=== PATIENT | male | born 1960 | race Caucasian/White ===

== ENCOUNTER 2024-07-05 11:43 | Inpatient (IN) | payer OTHER ==
[~2024-07-05] VITALS: Ht 170.2 cm; Wt 65.9 kg
[2024-07-05] VITALS (13 sets, daily range): BP systolic 111–146; BP diastolic 80–92; PULSE 95–141; RESP 14–31; TEMP 37.1; O2SAT 99–100
[2024-07-05 13:39] LABS: HEMATOCRIT. 47.8 % (42.0-52.0); HEMOGLOBIN. 15.5 g/dL (14.0-18.0); MEAN CORPUSCULAR HEMOGLOBIN 29.3 pg (28.0-32.0); MEAN CORPUSCULAR HGB CONC 32.5 g/dL (31.0-37.0); MEAN CORPUSCULAR VOLUME 90.3 fL (80.0-94.0); MEAN PLATELET VOLUME 8.1 fl (7.4-10.4); PLATELET 221 x1000/uL (130-400); RED CELL DISTRIBUTION WIDTH 12.8 % (11.6-14.6); WHITE BLOOD COUNT 18.7 x1000/uL (4.5-11.0)
[2024-07-05 13:50] LABS: DIFFERENTIAL COMMENT 1
[2024-07-05 14:02] LABS: CARBON DIOXIDE 23 mEq/L (21-32); CHLORIDE 102 mEq/L (98-107); POTASSIUM 4.1 mEq/L (3.5-5.1); SODIUM 136 mEq/L (136-145)
[2024-07-05 14:04] LABS: CALCIUM 10.2 mg/dL (8.7-10.4)
[2024-07-05 14:08] LABS: CREATININE 0.9 mg/dL (0.6-1.3); GLUCOSE 140 mg/dL (70-105); UREA NITROGEN BLOOD 12 mg/dL (9-23)
[2024-07-05] MEDS: LORAZEPAM 2MG/ML UD SYRINGE IV NR ×2 (14:35→16:35)
[2024-07-05] MEDS: SODIUM CHLORIDE 0.9% 1,000 ML IV ONE (14:40)
[2024-07-05] MEDS: LEVETIRACETAM 1000MG PREMIX 100 ML IV NR (14:40)
[2024-07-05 15:31] LABS: AMMONIA < 17 uMol/L (<32)
[2024-07-05] MEDS: HALOPERIDOL LACTATE 5MG/ML VIAL IM ONE ×2 (15:54→17:02)
[2024-07-05] MEDS: LORAZEPAM 2MG/ML INJ IV ONE (15:54)
[2024-07-05 15:57] LABS: PLATELET ESTIMATE NORMAL
[2024-07-05 16:07] LABS: ETHANOL BLOOD < 10 mg/dL (<10)
[2024-07-05 16:11] LABS: THYROID STIMULATING HORMONE 0.96 uIU/mL (0.55-4.78)
[2024-07-05] MEDS: DIPHENHYDRAMINE 50MG/ML VIAL IM NR (16:38)
[2024-07-05] MEDS ORDERED: PROPOFOL 10MG/ML 100ML 100 ML IV PRN (17:45)
[2024-07-05] MEDS: PROPOFOL 10MG/ML 100ML 100 ML IV ONE (17:50)
[2024-07-05] MEDS: ETOMIDATE 2MG/ML 10ML VIAL IV ONE (17:51)
[2024-07-05] MEDS: SUCCINYLCHOLINE CHLORIDE 200MG/10ML IV ONE ×2 (17:51→17:59)
[2024-07-05] MEDS: MIDAZOLAM HCL 2 MG/2 ML VIAL IV ONE (18:04)
[2024-07-05 18:07] LABS: ALANINE AMINOTRANSFERASE 25 IU/L (10-49); ALBUMIN 4.3 g/dL (3.2-4.8); ASPARTATE AMINOTRANSFERASE 52 IU/L (<34); BILIRUBIN DIRECT 0.2 mg/dL (<=3.0); BILIRUBIN TOTAL 0.9 mg/dL (0.1-1.0); PROTEIN TOTAL 7.6 g/dL (6.0-8.3)
[2024-07-05 18:22] LABS: PROTHROMBIN TIME 10.6 sec (9.6-11.0)
[2024-07-05] MEDS ORDERED: DEXTROSE 50% WATER 50ML SYRINGE IV PRN (18:30)
[2024-07-05] MEDS ORDERED: ACETAMINOPHEN 325MG TABLET PO PRN (18:30)
[2024-07-05] MEDS ORDERED: GUAIFENESIN 200MG/10ML SUGAR FREE UDC PO PRN ×2 (18:30→19:30)
[2024-07-05] MEDS ORDERED: DOCUSATE SODIUM 100MG CAPSULE PO PRN (18:30)
[2024-07-05] MEDS ORDERED: IPRATROPIUM/ALBUTEROL 0.5-3(2.5)MG/3ML NEB HHN PRN (18:30)
[2024-07-05] MEDS ORDERED: ONDANSETRON HCL 4MG/2ML INJ IV PRN (18:30)
[2024-07-05 18:33] LABS: CLARITY URINE CLEAR (CLEAR); COLOR URINE YELLOW (YELLOW); GLUCOSE URINE NEGATIVE (NEGATIVE); KETONES URINE 1+ (NEGATIVE); LEUKOCYTE ESTERASE URINE NEGATIVE (NEGATIVE); NITRITE URINE NEGATIVE (NEGATIVE); OCCULT BLOOD URINE 2+ (NEGATIVE); PROTEIN URINE 2+ (NEGATIVE); SPECIFIC GRAVITY URINE 1.015 (1.005-1.030); UROBILINOGEN URINE 0.2 E.U./dL (0.2-1.0)
[2024-07-05 18:39] LABS: TROPONIN I HIGH SENSITIVITY 99 ng/L (3.0-53)
[2024-07-05 18:51] LABS: *AMPHETAMINES SCREEN URINE NEGATIVE (NEGATIVE); *BENZODIAZEPINES SCREEN URINE NEGATIVE (NEGATIVE)
[2024-07-05 18:52] LABS: *BARBITURATES SCREEN URINE NEGATIVE (NEGATIVE); *COCAINE SCREEN URINE NEGATIVE (NEGATIVE); CANNABINOID URINE SCREEN NEGATIVE (NEGATIVE); ECSTASY MDMA SCREEN URINE NEGATIVE (NEGATIVE); METHADONE URINE SCREEN NEGATIVE (NEGATIVE); OPIATES URINE SCREEN NEGATIVE (NEGATIVE); PHENCYCLIDINE URINE SCREEN NEGATIVE (NEGATIVE)
[2024-07-05] MEDS ORDERED: CEFTRIAXONE 2GM/50ML 50 ML IV ONE (19:00)
[2024-07-05] MEDS ORDERED: VANCOMYCIN 1.5GM/250ML 250 ML IV SCH (19:00)
[2024-07-05] MEDS ORDERED: ACYCLOVIR INJ 800 MG in DEXT 5% WATER 100 ML IV ONE (19:00)
[2024-07-05 19:11] LABS: BACTERIA URINE 1+; SQUAMOUS EPITHELIAL CELL URINE RARE /lpf (RARE/1+); WBC URINE 0-2 /hpf (0-2)
[2024-07-05 19:16] LABS: BG BASE EXCESS -2.5 mmol/L (-2.0-3.0); BG CARBOXYHEMOGLOBIN 0.6 % (0.5-1.5); BG DEOXYHEMOGLOBIN 0.2 % (0.0-5.0); BG FRACTION INSPIRED OXYGEN 100; BG METHEMOGLOBIN 0.3 % (0.5-1.5); BG OXYGEN SATURATION 99.8 % (94.0-98.0); BG OXYHEMOGLOBIN 98.9 % (94.0-98.0); BG PCO2 32.9 mmHg (35.0-48.0); BG PH 7.422 (7.350-7.450); BG PO2 526.7 mmHg (83.0-108.0); BG SAMPLE SITE RIGHT RADIAL; BG TOTAL HEMOGLOBIN 15.2 g/dL (13.5-17.5); BG TOTAL RESPIRATORY RATE 15 b/min; BG VENT MODE VENT - AC
[2024-07-05] MEDS ORDERED: IPRATROPIUM/ALBUTEROL 0.5-3(2.5)MG/3ML NEB NEB PRN (19:30)
[2024-07-05] MEDS ORDERED: CEFTRIAXONE 1GM/50ML 50 ML IV NR (21:00)
[2024-07-05] MEDS: INSULIN LISPRO 100 UNITS/ML SUBCUT SCH (21:00)
[2024-07-05] MEDS: PROPOFOL 10MG/ML 100ML 100 ML IV PRN (21:02)
[2024-07-05] MEDS: BLOOD SUGAR DIAGNOSTIC STRIP TEST SCH (21:03)
[2024-07-05] MEDS: SODIUM CHLORIDE 0.9% 3ML FLUSH IVF SCH (21:53)
[2024-07-05] MEDS: ENOXAPARIN 40MG/0.4ML SYR SUBCUT SCH (21:54)
[2024-07-05] MEDS: ACYCLOVIR INJ 800 MG in DEXT 5% WATER 100 ML IV NR (21:54)
[2024-07-05] MEDS: CEFTRIAXONE 2GM/50ML 50 ML IV NR (21:54)
[2024-07-05] MEDS: VANCOMYCIN 1.5GM/250ML 250 ML IV NR (21:54)
[2024-07-05] MEDS: LEVETIRACETAM 1000MG PREMIX 100 ML IV SCH (21:55)
[2024-07-05] MEDS: PANTOPRAZOLE SODIUM 40 MG/VIAL IV SCH (21:55)
[2024-07-05] MEDS: METHYLPREDNISOLONE SOD SUCC 40MG/ML (ACT-O-VIAL) IV SCH (23:44)
[2024-07-06] VITALS (72 sets, daily range): BP systolic 89–150; BP diastolic 69–106; PULSE 62–117; RESP 14–20; TEMP 36.3–36.7; O2SAT 99–100
[2024-07-06 00:24] LABS: CREATINE KINASE 3869 IU/L (46-171)
[2024-07-06 00:28] LABS: TROPONIN I HIGH SENSITIVITY 108 ng/L (3.0-53)
[2024-07-06 00:29] LABS: HEPATITIS B SURFACE ANTIGEN NEGATIVE (Negative)
[2024-07-06 00:50] LABS: HEPATITIS A AB IGM NEGATIVE (Negative); HEPATITIS B CORE AB IGM NEGATIVE (Negative)
[2024-07-06 00:51] LABS: HEPATITIS C AB NON REACTIVE (Neg) (Negative)
[2024-07-06] MEDS ORDERED: LEVE500T19 PO (02:29)
[2024-07-06] MEDS ORDERED: ATOR40TA70 PO (02:29)
[2024-07-06 06:48] LABS: CHLORIDE 102 mEq/L (98-107); POTASSIUM 3.5 mEq/L (3.5-5.1); SODIUM 135 mEq/L (136-145)
[2024-07-06 06:49] LABS: CALCIUM 9.5 mg/dL (8.7-10.4); CARBON DIOXIDE 23 mEq/L (21-32)
[2024-07-06 06:53] LABS: HEMATOCRIT. 43.7 % (42.0-52.0); HEMOGLOBIN. 14.7 g/dL (14.0-18.0); MEAN CORPUSCULAR HEMOGLOBIN 29.9 pg (28.0-32.0); MEAN CORPUSCULAR HGB CONC 33.6 g/dL (31.0-37.0); MEAN CORPUSCULAR VOLUME 89.1 fL (80.0-94.0); PLATELET 169 x1000/uL (130-400); RED BLOOD CELL COUNT 4.91 mill/uL (4.7-6.1); RED CELL DISTRIBUTION WIDTH 12.8 % (11.6-14.6); WHITE BLOOD COUNT 10.2 x1000/uL (4.5-11.0)
[2024-07-06 06:54] LABS: GLUCOSE 144 mg/dL (70-105); UREA NITROGEN BLOOD 12 mg/dL (9-23)
[2024-07-06 07:05] LABS: CREATINE KINASE 3056 IU/L (46-171)
[2024-07-06 07:21] LABS: DIFFERENTIAL COMMENT 1
[2024-07-06] MEDS: SODIUM CHLORIDE 0.9% 1,000 ML IV SCH (08:18)
[2024-07-06 08:23] LABS: BG BASE EXCESS -1.3 mmol/L (-2.0-3.0); BG CARBOXYHEMOGLOBIN 0.8 % (0.5-1.5); BG DEOXYHEMOGLOBIN 1.8 % (0.0-5.0); BG FRACTION INSPIRED OXYGEN 30; BG HCO3 ACT 21.7 mmol/L (21.0-28.0); BG METHEMOGLOBIN 0.3 % (0.5-1.5); BG OXYGEN SATURATION 98.2 % (94.0-98.0); BG OXYHEMOGLOBIN 97.1 % (94.0-98.0); BG PCO2 32.2 mmHg (35.0-48.0); BG PH 7.447 (7.350-7.450); BG PO2 102.7 mmHg (83.0-108.0); BG SAMPLE SITE RIGHT RADIAL; BG VENT MODE VENT - AC
[2024-07-06 09:54] LABS: TROPONIN I HIGH SENSITIVITY 56 ng/L (3.0-53)
[2024-07-06 12:38] LABS: TROPONIN I HIGH SENSITIVITY 26 ng/L (3.0-53)
[2024-07-06 13:54] LABS: PLATELET ESTIMATE NORMAL
[2024-07-06] MEDS ORDERED: GADOTERATE MEGLUMINE 5 MMOL/10 ML VIAL IV ONE (18:01)
[2024-07-06] MEDS: CEFTRIAXONE 1GM/50ML 50 ML IV SCH (22:08)
[2024-07-06] MEDS: DEXMEDETOMIDINE 400 MCG/100 ML 100 ML IV PRN (22:46)
[2024-07-06] MEDS: PROPOFOL 10MG/ML 100ML 100 ML IV PRN (22:47)
[2024-07-07] VITALS (88 sets, daily range): BP systolic 109–213; BP diastolic 77–128; PULSE 45–144; RESP 15–34; TEMP 36.6–37.6; O2SAT 94–100
[2024-07-07 05:54] LABS: HEMATOCRIT 44.5 % (42.0-52.0); HEMOGLOBIN 14.7 g/dL (14.0-18.0); MEAN CORPUSCULAR HEMOGLOBIN 29.9 pg (28.0-32.0); MEAN CORPUSCULAR VOLUME 90.4 fL (80.0-94.0); PLATELET 157 x1000/uL (130-400); RED BLOOD CELL COUNT 4.92 mill/uL (4.7-6.1); RED CELL DISTRIBUTION WIDTH 13.1 % (11.6-14.6); WHITE BLOOD COUNT 15.7 x1000/uL (4.5-11.0)
[2024-07-07 05:59] LABS: CHLORIDE 113 mEq/L (98-107); POTASSIUM 3.7 mEq/L (3.5-5.1); SODIUM 145 mEq/L (136-145)
[2024-07-07 06:00] LABS: CALCIUM 9.2 mg/dL (8.7-10.4); CARBON DIOXIDE 22 mEq/L (21-32)
[2024-07-07 06:05] LABS: CREATININE 0.8 mg/dL (0.6-1.3); GLUCOSE 121 mg/dL (70-105); TRIGLYCERIDE 183 mg/dL (0-150); UREA NITROGEN BLOOD 14 mg/dL (9-23)
[2024-07-07 06:07] LABS: PHOSPHORUS 3.2 mg/dL (2.5-4.9)
[2024-07-07 08:57] LABS: BG BASE EXCESS -3.2 mmol/L (-2.0-3.0); BG CARBOXYHEMOGLOBIN 1.1 % (0.5-1.5); BG DEOXYHEMOGLOBIN 1.5 % (0.0-5.0); BG FRACTION INSPIRED OXYGEN 30; BG HCO3 ACT 17.7 mmol/L (21.0-28.0); BG METHEMOGLOBIN 0.3 % (0.5-1.5); BG OXYGEN SATURATION 98.5 % (94.0-98.0); BG OXYHEMOGLOBIN 97.1 % (94.0-98.0); BG PCO2 22.9 mmHg (35.0-48.0); BG PH 7.506 (7.350-7.450); BG SAMPLE SITE RIGHT RADIAL; BG TOTAL HEMOGLOBIN 14.8 g/dL (13.5-17.5); BG VENT MODE VENT - AC
[2024-07-07] MEDS: LORAZEPAM 0.5MG TABLET PO PRN (13:42)
[2024-07-07] MEDS: LORAZEPAM 2MG/ML UD SYRINGE IV PRN (15:48)
[2024-07-07] MEDS: ACETAMINOPHEN 325MG TABLET PO PRN (20:58)
[2024-07-07] MEDS: CLONIDINE 0.1MG TABLET PO SCH (21:46)
[2024-07-07] MEDS: QUETIAPINE FUMARATE 25MG TABLET PO SCH (21:46)
[2024-07-08] VITALS (37 sets, daily range): BP systolic 122–182; BP diastolic 84–102; PULSE 69–112; RESP 16–24; TEMP 36.9–37.7; O2SAT 94–99
[2024-07-08] MEDS: VANCOMYCIN 1.25GM/250ML IV NR (06:12)
[2024-07-08 06:18] LABS: CARBON DIOXIDE 22 mEq/L (21-32); CHLORIDE 113 mEq/L (98-107); POTASSIUM 3.3 mEq/L (3.5-5.1); SODIUM 145 mEq/L (136-145)
[2024-07-08 06:19] LABS: CALCIUM 8.7 mg/dL (8.7-10.4)
[2024-07-08 06:23] LABS: CREATININE 0.7 mg/dL (0.6-1.3); GLUCOSE 92 mg/dL (70-105)
[2024-07-08 06:24] LABS: UREA NITROGEN BLOOD 9 mg/dL (9-23)
[2024-07-08 06:26] LABS: PHOSPHORUS 3.5 mg/dL (2.5-4.9)
[2024-07-08 06:28] LABS: HEMATOCRIT 43.3 % (42.0-52.0); HEMOGLOBIN 14.1 g/dL (14.0-18.0); MEAN CORPUSCULAR HEMOGLOBIN 29.6 pg (28.0-32.0); MEAN CORPUSCULAR HGB CONC 32.7 g/dL (31.0-37.0); MEAN CORPUSCULAR VOLUME 90.5 fL (80.0-94.0); PLATELET 137 x1000/uL (130-400); RED BLOOD CELL COUNT 4.78 mill/uL (4.7-6.1); WHITE BLOOD COUNT 11.2 x1000/uL (4.5-11.0)
[2024-07-08] MEDS: POTASSIUM CHLORIDE 20MEQ/PACKET PO NR ×2 (07:10→18:43)
[2024-07-08] MEDS: CLONIDINE 0.1MG TABLET PO PRN (11:56)
[2024-07-08] MEDS ORDERED: VANCOMYCIN 750MG/150ML (BAXTER) IV SCH (14:00)
[2024-07-08] MEDS: LOSARTAN 50 MG TABLET PO SCH ×2 (15:13→20:49)
[2024-07-08] MEDS: HYDRALAZINE 20MG/ML VIAL IV PRN (17:53)
[2024-07-08] MEDS ORDERED: QUETIAPINE FUMARATE 25MG TABLET PO SCH (21:00)
[2024-07-08] MEDS: CLONIDINE 0.2MG TABLET PO SCH (21:03)
[2024-07-09] MEDS ORDERED: HYDRALAZINE 10 MG in SODIUM CHLORIDE 0.9% 49.5 ML IV PRN (01:00)
[2024-07-09 08:00] VITALS: BP 144/90; PULSE 97; RESP 20; TEMP 35.1; O2SAT 98
[2024-07-09 08:00] LABS: CHLORIDE 108 mEq/L (98-107); POTASSIUM 3.3 mEq/L (3.5-5.1); SODIUM 143 mEq/L (136-145)
[2024-07-09 08:01] LABS: CALCIUM 9.2 mg/dL (8.7-10.4); CARBON DIOXIDE 26 mEq/L (21-32)
[2024-07-09 08:06] LABS: CREATININE 0.7 mg/dL (0.6-1.3); GLUCOSE 118 mg/dL (70-105); UREA NITROGEN BLOOD 10 mg/dL (9-23)
[2024-07-09] MEDS ORDERED: LOSA50TA41 PO (08:35)
[2024-07-09] MEDS ORDERED: LEVE1000 PO (08:35)
[2024-07-09] MEDS: POTASSIUM CHLORIDE 20MEQ/PACKET PO NR (09:00)
[2024-07-09 12:00] VITALS: BP 173/98; PULSE 101; RESP 22; TEMP 36.8; O2SAT 98
[2024-07-09 15:00] VITALS: BP 135/87; PULSE 81; TEMP 98.2; O2SAT 100
== END 2024-07-09 15:40 | disposition home or self-care (01) | DRG 100 ==
LOC: ER 12:25 → CVICU 18:06 → EDBEDREQSVC 18:09 → EDBEDREQTM 18:09 → EDBEDREQ 18:09 → 6EST 07-09 00:30
PROVIDERS: ADMIT Hospitalist; ATTEND Hospitalist
PROC: 5A1945Z Respiratory Ventilation, 24-96 Consecutive Hours (ICD-10-PCS; principal; 2024-07-05)
PROC: 0BH17EZ Insertion of Endotracheal Airway into Trachea, Via Natural or Artificial Opening (ICD-10-PCS; 2024-07-05)
PROC: 4A00X4Z Measurement of Central Nervous Electrical Activity, External Approach (ICD-10-PCS; 2024-07-07)
DX: G40.909 Epilepsy, unspecified, not intractable, without status epilepticus (principal); G92.8 Other toxic encephalopathy; I21.A1 Myocardial infarction type 2; J96.01 Acute respiratory failure with hypoxia; E11.65 Type 2 diabetes mellitus with hyperglycemia; D72.829 Elevated white blood cell count, unspecified; I10 Essential (primary) hypertension; E78.00 Pure hypercholesterolemia, unspecified; Z79.899 Other long term (current) drug therapy; Z86.73 Personal history of transient ischemic attack (TIA), and cerebral infarction without residual deficits
CPT/HCPCS: 31500; 36415; 36600; 70553; 71045; 80048; 80061; 80076; 80305; 80320; 81003; 82140; 82375; 82550; 82805; 82962; 83036; 83605; 83735; 84100; 84145; 84443; 84478; 84484; 85025; 85027; 86705; 86709; 87070; 87340; 87529; 92610; 94003; 94070; 95816; 99285; A4606; A9577; J0133; J0360; J0696; J1200; J1630; J1650; J1953; J2060; J2250; J2470; J2704; J2919; J3370; J7030; J7060; G0480